=== PATIENT | female | born 1930 | race Caucasian/White ===

== ENCOUNTER → 2017-01-17 | Outpatient (CLI) | payer MEDICARE ==
[~2017-01-17] MED LIST: ALPRAZOLAM0.25 MG PO; AMITIZA24 MCG PO; AMLODIPINE BESYL5 MG PO; ANTIHISTAMINE; ANUSOL HC,ANUCO25 MG R; ASPI-COR81 M1 PO; ASPIRIN81 M1 PO; ATIVAN0.5 MG PO; BOOST GLUCOSE237 M1 PO; CALCITONIN IJ; CALTRATE 600+D1 TAB PO; CARVEDILOL3.125 MG PO; CENTRUM1 TA1 PO; CLINDAMYCIN150 MG PO; COLACE100 MG PO; COREG3.125 MG PO; COZAAR50 MG PO; CYMBALTA60 MG PO; Carafate1 GM PO; DEXILANT60 M1 PO; DOXYCYCLINE100 M3 PO; DUONEB 3 MG/3 ML3 M1 INH; DUONEB 3 MG/3 ML3 M1 NEB; ENALAPRIL MALE2.5 MG PO; ENALAPRIL2.5 MG PO; ENALAPRIL5 MG PO; FLONASE ALLERG9.9 ML NS; FLONASE0.05 MG/AC; FLONASE0.05 MG/AC NS; FLUTICASON0.05 MG/A1 NS; GLYBURIDE/METFO1 TA2 PO; HYDROCODONE BIT1 T11 PO; K-DUR 1010 MEQ PO; KETOTIFEN OPH; LASIX20 MG PO; LASIX40 MG PO; LINZESS145 MCG PO; LIPITOR40 MG PO; LOPRESSOR50 MG PO; LOSARTAN POTASS50 M1 PO; METAMUCIL0.52 GM; METFORMIN500 MG PO; MIACALCIN SPRAY1 EA NAS; MIRALAX POWDER17 G1 PO; MOTRIN800 MG PO; MULTIVITAMIN FO1 CAP PO; MYCOLOG CREAM 115 GM PO; Metformin Hydr500 MG PO; NIFEREX150 MG PO; NORFLEX100 MG PO; NOVOLOG1 UNIT/0.0 SC; NYSTATIN100000 U/1 T; OMEPRAZOLE40 MG PO; PATANOL 0.1% 5 M5 ML; PATANOL 0.1% 5 M5 ML OPH; PEPCID20 MG PO; POTASSIUM20 MEQ PO; PRAVACHOL20 MG PO; PRAVACHOL80 MG PO; PREDNICOT20 MG PO; PROTONIX20 MG IV; PROTONIX40 MG PO; RANITIDINE300 MG PO; REGLAN5 MG PO; SALINE NASAL 4444 ML NS; SERTRALINE100 MG PO; SUCRALFATE1 GM PO; SYSTANE 0.3-0.415 ML OP; TYLENOL325 M2 PO; VANCOMYCIN HCL1 GM IV; VICODIN 500 MG-1 TAB PO; VITAMIN B121000 MCG PO; VITAMIN D1000 IU PO; VITAMIN D31000 I1 PO; VITAMIN D31000 IU PO; XANAX0.25 MG PO; ZANTAC 150150 MG PO; ZANTAC150 MG PO; ZESTRIL5 MG PO; ZOFRAN ODT4 MG PO; ZOFRAN4 MG PO; ZOLOFT100 MG PO; Zofran4 MG PO; [UNRECOGNIZED DRUG - OTHER] IJ
== END | disposition home or self-care (01) ==
LOC: LAB 14:10
PROVIDERS: Internal Medicine
DX: R51 Headache (principal)

== ENCOUNTER → 2017-01-20 | Outpatient (CLI) | payer MEDICARE | END | disposition home or self-care (01) | LOC: CT 03:30 | DX: R51 Headache (principal); Z85.3 Personal history of malignant neoplasm of breast ==

== ENCOUNTER 2017-11-18 19:07 | Inpatient (IN) | payer MEDICARE ==
[~2017-11-18] VITALS: Ht 165.1 cm; Wt 68.9 kg
--- NOTE | ~2017-11-18 | DS ---
[place], [place] DISCHARGE SUMMARY NAME: MYRIAM ROBERTS [facility] #: [id number] UNIT #: [id number] ROOM: 421 DOCTOR: LU HWANG MD BIRTHDATE: [birth year] DOS: 11/22/2017 DISCHARGE DIAGNOSES: 1. The patient with cat bite 10 days ago, followed by local infection at the bite area on the outside of the right leg and cellulitis. 2. Abscess at the cat bite site on the outer side of the right leg, status post drainage. 3. The patient received one rabies vaccine injection, but cat is still alive 10 days after the bite, so further injections were stopped by Dr. Padmini Gregorio. 4. Type 2 diabetes mellitus. 5. Benign essential hypertension. 6. Diabetic nephropathy stage 3a. 7. History of recurrent gastrointestinal bleeds in the past. 8. History of restless leg syndrome. 9. History of colonic diverticulosis. 10. Bilateral knee replacements. 11. History of hiatal hernia and gastroesophageal reflux disease. 12. History of stomach ulcers. 13. History of bronchial asthma and hyperreactive airway disease. HOSPITAL COURSE: The patient says that she feeds a stray cat who actually bit her on , which was 10 days back and following this she developed redness and swelling in the surrounding area right outside of her right leg. The patient was admitted and the abscess was drained and she was started on antibiotics. The patient had no clearcut rabies vaccination. The patient was given first injection of rabies and cat was quarantined in the bathroom at her home. As checked by the patient, cat is still alive 10 days after the bite. This was passed on by nursing staff to Dr. Padmini Gregorio, the ID specialists who stopped any further injections and has recommended to continue clindamycin and Levaquin for 1 more week. The patient is being discharged to home to follow up with the PCP and Infectious Disease specialist in less than a week. Type 2 diabetes mellitus. Blood sugars were monitored and treated and reasonably controlled. Benign essential hypertension, with controlled blood pressures with treatment. Restless leg syndrome, treated with ropinirole, which was continued. Diabetic nephropathy stage 3a, stable. Chronic kidney disease. Previous history of recurrent GI bleeds and extensive colonic diverticulosis. The patient is slightly anemic, which is chronic for her. LABORATORY DATA: Blood cultures were negative. Wound cultures were negative. Normal serum electrolytes. Sodium slightly low at 129. No leukocytosis. Hemoglobin 10.4 with normal platelets. [place], [place] DISCHARGE SUMMARY NAME: MYRIAM ROBERTS #: [id number] UNIT #: [id number] ROOM: 421 DOCTOR: LU HWANG MD BIRTHDATE: [birth year] DISCHARGE MANAGEMENT: Metformin 250 mg daily, Levaquin 750 mg daily for a week, clindamycin 300 mg every 6 hours for 1 week, Coreg 3.125 mg b.i.d., lisinopril 5 mg b.i.d., Zoloft 100 mg a day, ropinirole 0.75 mg at bedtime, Cymbalta 80 mg a day, Protonix 40 mg a day, MiraLax 17 grams a day. FOLLOWUP: With the PCP and Infectious Disease specialist in less than a week. LU HWANG MD CM:INGRIS [id number] LU HWANG MD 11/22/17 182 interface
--- NOTE | ~2017-11-18 | PR ---
[place], [place] PROGRESS NOTE NAME: MYRIAM ROBERTS UNIT #: [id number] ROOM: 421 DOCTOR: LU HWANG MD BIRTHDATE: [birth year] DOS: 11/21/2017 SUBJECTIVE: The patient continues to improve, swelling and redness in her right leg is improving. OBJECTIVE: VITAL SIGNS: Blood pressure 144/67, heart rate 65 beats per minute, breathing 20 times per minute, temperature 98 degrees Fahrenheit. GENERAL APPEARANCE: The patient is alert and oriented x 3, in no visible distress. HEENT AND NECK: Exam within normal limits. CARDIOVASCULAR SYSTEM: Heart rate is regular in rate and rhythm. S1 and S2 normally audible. LUNGS: Clear to auscultation. ABDOMEN: Soft, nontender. No obvious organomegaly. Bowel sounds are present. EXTREMITIES: Swelling and redness in her right outer side of the right leg is improving and the wound which was drained, the abscess site is still draining. LU HWANG MD CM:PNTRANS [id number] LU HWANG MD 11/22/17 183 interface
--- NOTE | ~2017-11-18 | WRIGHTHP ---
[place], [place] PATIENT HISTORY AND PHYSICAL EXAM NAME: MYRIAM ROBERTS [facility] #: [id number] UNIT #: [id number] ROOM: 421 DOCTOR: LU HWANG MD BIRTHDATE: [birth year] DOS: 11/18/2017 HISTORY OF PRESENT ILLNESS: The patient is an 87-year-old female with a past medical history of bleeding, diverticulosis, recurrent severe GI bleed, chronic kidney disease stage 3, benign essential hypertension, type 2 diabetes mellitus with diabetic nephropathy, bilateral knee replacements, hiatal hernia and GERD, extensive diverticulosis of the colon, history of stomach ulcers, history of bronchial asthma and hyperreactive airway disease. The patient presented to the emergency department with a cat bite on , that is 6 days back, which started getting swelling and redness and pain, which was progressive. The patient finally presented to the emergency department. The patient says that she has not immunized the cat who is a stray cat that she started feeding, so she does not know about cat's immunization. The patient was recommended for admission and further management for IV antibiotics. The patient says the redness and swelling in the right leg has started improving. No chest pain, no shortness of breath, no GI or urinary symptoms. REVIEW OF SYSTEMS: LUNGS: No increasing shortness of breath. GASTROINTESTINAL: No nausea, vomiting, diarrhea, constipation. CARDIOVASCULAR: No chest pains or palpitations. FAMILY HISTORY: Noncontributory. SOCIAL HISTORY: The patient lives at home. Denies smoking cigarettes, alcohol and drug abuse. HOME MEDICATIONS: Ropinirole p.r.n., MiraLax, Vasotec, Cymbalta, lisinopril, Coreg, Vicodin. ALLERGIES: Known allergies to PENICILLIN and PROCAINE. PHYSICAL EXAMINATION: GENERAL: Alert, oriented times 3, in no visible distress. HEENT AND NECK: Extraocular movements are intact. Sclerae are anicteric. Oral mucosa is moist and clean. No obvious facial weakness. Neck is supple without any lymphadenopathy. No thyromegaly. No JVD. No carotid arterial bruits. LUNGS: Clear to auscultation. No wheezing. No rhonchi. CARDIOVASCULAR SYSTEM: Heart rate is regular in rate and rhythm. S1 and S2 normally audible. No significant murmur or any other abnormal cardiac sounds. ABDOMEN: Soft, nontender. No obvious organomegaly. Bowel sounds are present. No obvious herniation. EXTREMITIES: Swelling and redness on the outer side of the right leg, measuring about 8 inches and the patient has broken skin in the middle of the area of cellulitis, no drainage. CENTRAL NERVOUS SYSTEM: Alert and oriented x 3. Cranial nerves II-XII are intact. Speech is normal. The patient is able to move all extremities. Normal muscle strength. Deep tendon reflexes are equal on both sides. Plantars were downgoing. [place], [place] PATIENT HISTORY AND PHYSICAL EXAM NAME: MYRIAM ROBERTS UNIT #: [id number] ROOM: 421 DOCTOR: JAIDEN CALDERON,LU [place] BIRTHDATE: [birth year] LABORATORY DATA: No leukocytosis. Hemoglobin of 11. BUN and creatinine 30 and 1.4. IMPRESSION AND PLAN: 1. The patient with a cat bite versus scratch on the right leg with spreading cellulitis. The patient is not certain about cat immunization. The cat needs to be quarantine. The patient was informed, now consulted infectious disease specialist to decide about rabies vaccination as well as selection of antibiotics. For now, the patient I started the patient on Levaquin for the cellulitis. 2. Type 2 diabetes mellitus. Blood sugars are reasonably controlled. 3. Benign essential hypertension. I will continue the patient's home medications and monitor blood pressures. They are reasonably controlled. 3. History of restless leg syndrome for which she takes ropinirole p.r.n., but she is having the symptoms now, so ropinirole is being started. 4. Diabetic nephropathy, stage IIIA. Kidney functions to be monitored. 5. History of recurrent GI bleeds, presently asymptomatic. The patient is slightly anemic and chronically anemic. LU HWANG MD CM:HISPHYS:PATIENT HISTORY AND PHYSICAL EXAMINATION [id number] LU HWANG MD 11/19/17 0501 interface
--- NOTE | ~2017-11-18 | PR ---
[place], [place] PROGRESS NOTE [id number] UNIT #: [id number] ROOM: 421 DOCTOR: LU HWANG MD BIRTHDATE: [birth year] DOS: 11/20/2017 SUBJECTIVE: The patient is starting to feel better after she had incision and drainage of the abscess in her right calf. The patient also received 1 injection of rabies vaccine. OBJECTIVE: VITAL SIGNS: Blood pressure 121/44, heart rate 73 beats per minute, breathing 20 times per minute, temperature 98 degrees Fahrenheit. GENERAL APPEARANCE: The patient is alert and oriented x 3, in no visible distress. HEENT AND NECK: Exam within normal limits. CARDIOVASCULAR SYSTEM: Heart rate is regular in rate and rhythm. S1 and S2 normally audible. LUNGS: Clear to auscultation. ABDOMEN: Soft, nontender. No obvious organomegaly. Bowel sounds are present. EXTREMITIES: Without significant cyanosis or edema. IMPRESSION: 1. The patient with cat bite versus cat scratch and spreading cellulitis in the right calf is improving after drainage of the abscess. 2. The patient is being treated with antibiotics. 3. The patient is being evaluated and treated for rabies. She received first injection of the rabies vaccine and the cat is being isolated at home and be watched for 10 days from the cat bite. If the cat stays alive, then the patient will not need any more rabies vaccine injections. 4. Type 2 diabetes mellitus. Blood sugars are reasonably controlled. 5. Benign essential hypertension. Blood pressure is being monitored and treated. 6. Cellulitis, improving with treatment with antibiotics. The patient remains on clindamycin and Levaquin. LU HWANG MD CM:PNTRANS [id number] [phone] LU HWANG MD 11/20/172035 interface
[~2017-11-18 19:07] MED LIST changes: -KETOTIFEN OPH; -PROTONIX20 MG IV; +PROTONIX20 MG PO; +ZADITOR 5 ML5 M1 OPH
[2017-11-18 19:12] VITALS: BP 110/78
[2017-11-18 19:53] LABS: BASO # 0.1 10*3/uL (0.0-0.1); BASO % 0.8 % (0.0-1.0); EOS # 0.2 10*3/uL (0.0-0.4); EOS % 2.2 % (1.0-4.0); HEMATOCRIT 32.4 % (37.0-47.0); LYMPH # 1.4 10*3/uL (1.3-4.4); LYMPH % 15.3 % (27.0-41.0); MEAN CELL VOLUME 97.3 fl (81.0-99.0); MEAN PLATELET VOLUME 10.5 fl (9.6-12.3); MONO # 0.9 10*3/uL (0.1-1.0); NEUT # 6.5 10*3/uL (2.3-7.9); NEUT % 71.5 % (47.0-73.0); PLATELET COUNT AUTOMATED 205 10*3/uL (130-400); RED BLOOD COUNT 3.33 10*6/uL (4.10-5.10); RED CELL DISTRI WIDTH 12.3 % (0-14.5); WHITE BLOOD COUNT 9.1 10*3/uL (4.8-10.8)
[2017-11-18 20:02] LABS: ACT PARTIAL THROMBO TIME 25.1 SECONDS (20.8-31.5)
[2017-11-18 20:07] LABS: ALBUMIN 3.3 gm/dl (3.1-4.5); CREATININE 1.57 mg/dL (0.55-1.02); POTASSIUM 4.3 mmol/L (3.5-5.1); TOTAL PROTEIN 7.2 gm/dL (6.4-8.2)
[2017-11-18 21:04] VITALS: BP 110/68
[2017-11-18 23:04] VITALS: BP 147/93
[2017-11-19] VITALS: BP 154/92
[2017-11-19] MEDS ORDERED: ALLERGY RELIEF25 MG PO (00:16)
[2017-11-19 06:17] LABS: CREATININE 1.44 mg/dL (0.55-1.02); POTASSIUM 3.9 mmol/L (3.5-5.1)
[2017-11-19 06:23] LABS: BASO # 0.1 10*3/uL (0.0-0.1); BASO % 0.7 % (0.0-1.0); EOS # 0.2 10*3/uL (0.0-0.4); EOS % 2.7 % (1.0-4.0); HEMATOCRIT 31.7 % (37.0-47.0); HEMOGLOBIN 10.6 g/dl (12.0-16.0); LYMPH # 1.2 10*3/uL (1.3-4.4); LYMPH % 15.9 % (27.0-41.0); MEAN CELL VOLUME 96.6 fl (81.0-99.0); MEAN CORPUSCULAR HGB 32.3 pg (27.0-31.0); MEAN CORPUSCULAR HGB CONC 33.4 g/dl (33.0-37.0); MEAN PLATELET VOLUME 10.6 fl (9.6-12.3); MONO # 0.7 10*3/uL (0.1-1.0); MONO % 9.7 % (3.0-9.0); NEUT # 5.4 10*3/uL (2.3-7.9); NEUT % 70.9 % (47.0-73.0); PLATELET COUNT AUTOMATED 196 10*3/uL (130-400); RED BLOOD COUNT 3.28 10*6/uL (4.10-5.10); RED CELL DISTRI WIDTH 12.2 % (0-14.5); WHITE BLOOD COUNT 7.7 10*3/uL (4.8-10.8)
[2017-11-19 08:00] VITALS: BP 141/72
[2017-11-19] MEDS ORDERED: SYSTANE 0.3-0.415 ML OU (09:52)
[2017-11-19] MEDS ORDERED: REQUIP1 M1 PO (09:56)
[2017-11-19] MEDS ORDERED: MIRALAX17 GM PO (09:57)
[2017-11-19 12:00] VITALS: BP 151/63
[2017-11-19 17:14] VITALS: BP 155/63
[2017-11-20 01:18] VITALS: BP 143/67
[2017-11-20 07:04] LABS: BASO # 0.1 10*3/uL (0.0-0.1); BASO % 0.6 % (0.0-1.0); EOS # 0.2 10*3/uL (0.0-0.4); EOS % 2.6 % (1.0-4.0); HEMATOCRIT 34.5 % (37.0-47.0); HEMOGLOBIN 11.4 g/dl (12.0-16.0); LYMPH % 10.9 % (27.0-41.0); MEAN CELL VOLUME 95.8 fl (81.0-99.0); MEAN CORPUSCULAR HGB 31.7 pg (27.0-31.0); MEAN PLATELET VOLUME 10.3 fl (9.6-12.3); MONO # 0.8 10*3/uL (0.1-1.0); MONO % 8.8 % (3.0-9.0); NEUT # 6.8 10*3/uL (2.3-7.9); NEUT % 76.9 % (47.0-73.0); PLATELET COUNT AUTOMATED 222 10*3/uL (130-400); RED CELL DISTRI WIDTH 12.2 % (0-14.5); WHITE BLOOD COUNT 8.9 10*3/uL (4.8-10.8)
[2017-11-20 07:13] LABS: CREATININE 1.28 mg/dL (0.55-1.02); POTASSIUM 4.2 mmol/L (3.5-5.1)
[2017-11-20 08:00] VITALS: BP 137/56
[2017-11-20 16:00] VITALS: BP 121/44
[2017-11-21] VITALS: BP 154/68
[2017-11-21 06:58] LABS: BASO % 0.5 % (0.0-1.0); EOS # 0.2 10*3/uL (0.0-0.4); EOS % 2.3 % (1.0-4.0); HEMATOCRIT 29.4 % (37.0-47.0); HEMOGLOBIN 10.4 g/dl (12.0-16.0); LYMPH # 0.8 10*3/uL (1.3-4.4); MEAN CORPUSCULAR HGB 32.9 pg (27.0-31.0); MEAN CORPUSCULAR HGB CONC 35.4 g/dl (33.0-37.0); MEAN PLATELET VOLUME 9.9 fl (9.6-12.3); MONO # 0.6 10*3/uL (0.1-1.0); MONO % 7.6 % (3.0-9.0); NEUT # 5.8 10*3/uL (2.3-7.9); NEUT % 78.3 % (47.0-73.0); PLATELET COUNT AUTOMATED 181 10*3/uL (130-400); RED BLOOD COUNT 3.16 10*6/uL (4.10-5.10); WHITE BLOOD COUNT 7.4 10*3/uL (4.8-10.8)
[2017-11-21 07:06] LABS: HIV 1+2 AB + HIV1 P24 AG Non Reactive (Non Reactive)
[2017-11-21 07:28] LABS: POTASSIUM 4.1 mmol/L (3.5-5.1)
[2017-11-21 07:29] LABS: CREATININE 1.14 mg/dL (0.55-1.02)
[2017-11-21 08:00] VITALS: BP 153/60
[2017-11-21 16:00] VITALS: BP 128/51
[2017-11-21 16:08] LABS: ACID FAST SPEC PROCESSING Tissue Grinding (.)
[2017-11-21 20:00] VITALS: BP 144/50
[2017-11-22 08:00] VITALS: BP 144/67
[2017-11-22] MEDS ORDERED: LEVAQUIN750 M1 PO ×2 (15:40→18:05)
[2017-11-22] MEDS ORDERED: CLEOCIN HCL300 MG PO (15:40)
[2017-11-22 16:00] VITALS: BP 138/78
[2017-11-22] MEDS ORDERED: CLINDAMYCIN HC300 MG PO (18:05)
== END 2017-11-22 19:00 | disposition home or self-care (01) | DRG 603 ==
LOC: ED 19:07 → EDHOLD 20:32 → 4E 20:32
PROVIDERS: Hospitalist; Internal Medicine; Physician Assistant
PROC: 0H9KXZZ Drainage of Right Lower Leg Skin, External Approach (ICD-10-PCS; principal; 2017-11-20)
DX: L03.115 Cellulitis of right lower limb (principal); E11.22 Type 2 diabetes mellitus with diabetic chronic kidney disease; E11.40 Type 2 diabetes mellitus with diabetic neuropathy, unspecified; L02.415 Cutaneous abscess of right lower limb; K21.9 Gastro-esophageal reflux disease without esophagitis; W55.01XA Bitten by cat, initial encounter; G25.81 Restless legs syndrome; K57.30 Diverticulosis of large intestine without perforation or abscess without bleeding; Z96.653 Presence of artificial knee joint, bilateral; I12.9 Hypertensive chronic kidney disease with stage 1 through stage 4 chronic kidney disease, or unspecified chronic kidney disease; N18.3 Chronic kidney disease, stage 3 (moderate); D64.9 Anemia, unspecified; J45.909 Unspecified asthma, uncomplicated; Z87.19 Personal history of other diseases of the digestive system; Z88.0 Allergy status to penicillin; Z88.8 Allergy status to other drugs, medicaments and biological substances; S81.851A Open bite, right lower leg, initial encounter; Z79.899 Other long term (current) drug therapy; Z79.84 Long term (current) use of oral hypoglycemic drugs; Z90.49 Acquired absence of other specified parts of digestive tract; Z98.42 Cataract extraction status, left eye; Z98.41 Cataract extraction status, right eye; Z90.710 Acquired absence of both cervix and uterus; Z82.49 Family history of ischemic heart disease and other diseases of the circulatory system; Z83.3 Family history of diabetes mellitus; Y93.89 Activity, other specified; Y92.89 Other specified places as the place of occurrence of the external cause; Y99.8 Other external cause status

== ENCOUNTER 2017-12-03 16:50 | Inpatient (IN) | payer MEDICARE ==
[~2017-12-03] VITALS: Ht 165.1 cm; Wt 66.7 kg
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
--- NOTE | ~2017-12-03 | WRIGHTHP ---
[place], [place] PATIENT HISTORY AND PHYSICAL EXAM NAME: MYRIAM ROBERTS [facility] #: [id number] UNIT #: [id number] ROOM: 508 DOCTOR: LU HWANG MD BIRTHDATE: [birth year] DOS: 12/03/2017 HISTORY OF PRESENT ILLNESS: The patient is an 87-year-old female with a past medical history of: 1. Type 2 diabetes mellitus. 2. Benign essential hypertension. 3. Diabetic nephropathy stage 3a. 4. Chronic kidney disease. 5. History of gastrointestinal bleeds in the past. 6. Restless legs syndrome. 7. Colonic diverticulosis. 8. Bilateral knee replacements. 9. Hiatal hernia and gastroesophageal reflux disease. 10. History of stomach ulcers in the past. 11. Bronchial asthma and hyperreactive airway disease. The patient was sent over by Dr. Daisy Abdi, her PCP to the ER for hyponatremia seen on the blood testing. Her sodium was low at 124 and potassium was high at 5.2. The patient had been having recurrent nausea and vomiting in the mornings. The patient was also feeling somewhat weak. After initial evaluation in the Emergency Department, the patient was recommended for admission and further management for acute hyponatremia. Nephrology was consulted. No chest pain. No increasing shortness of breath. No other GI or urinary symptoms. REVIEW OF SYSTEMS: LUNGS: No increasing shortness of breath. GASTROINTESTINAL: The patient has recurrent nausea and vomiting. CARDIOVASCULAR: No chest pains or palpitations. FAMILY HISTORY: Noncontributory. ALLERGIES: Known allergies to PENICILLIN, CLINDAMYCIN, PROCAINE and LEVAQUIN. PHYSICAL EXAMINATION: GENERAL: Alert, oriented x 3, in no visible distress, generalized weakness. VITAL SIGNS: Blood pressure 149/51, heart rate 60 beats per minute, breathing 20 times per minute, temperature 98 degrees Fahrenheit. HEENT AND NECK: Extraocular movements are intact. Sclerae are anicteric. Oral mucosa is moist and clean. No obvious facial weakness. Neck is supple without any lymphadenopathy. No thyromegaly. No JVD. No carotid arterial bruits. LUNGS: Clear to auscultation. No wheezing. No rhonchi. CARDIOVASCULAR SYSTEM: Heart rate is regular in rate and rhythm. S1 and S2 normally audible. No significant murmur or any other abnormal cardiac sounds. ABDOMEN: Soft, nontender. No obvious organomegaly. Bowel sounds are present. No obvious herniation. EXTREMITIES: Without significant cyanosis or edema. Warm to touch. CENTRAL NERVOUS SYSTEM: Alert and oriented x 3. Cranial nerves II-XII are intact. Speech is normal. The patient is able to move all extremities. Normal [place], [place] PATIENT HISTORY AND PHYSICAL EXAM NAME: MYRIAM ROBERTS UNIT #: [id number] ROOM: 508 DOCTOR: LU HWANG MD BIRTHDATE: [birth year] muscle strength. Deep tendon reflexes are equal on both sides. Plantars were downgoing. IMPRESSION AND PLAN: 1. The patient with acute hyponatremia, apparently related to drinking too much water and also having recurrent nausea and vomiting. The patient has been asked to cut back on her oral free water intake to 1 liter per day by Nephrology and we will continue to follow her serum electrolytes, BUN and creatinine on daily basis. 2. Type 2 diabetes mellitus and diabetic gastroparesis. Blood sugars are reasonably controlled. The patient to be kept on Zofran for nausea and vomiting. 3. Chronic constipation, treated with MiraLax. 4. Major depression, recurrent, mild, treated and controlled with Zoloft. 5. Generalized anxiety disorder, treated and controlled with Xanax as needed. 6. Hyperkalemia, apparently related to kidney failure. The patient was hydrated with normal saline and potassium levels are being monitored on daily basis. The patient was given extra supplements. LU HWANG MD CM:HISPHYS:PATIENT HISTORY AND PHYSICAL EXAMINATION [id number] LU HWANG MD 12/04/172121 interface
--- NOTE | ~2017-12-03 | PR ---
[place], [place] PROGRESS NOTE NAME: MYRIAM ROBERTS UNIT #: [id number] ROOM: 508 DOCTOR: JAIDEN CALDERONLU Montgomery BIRTHDATE: [birth year] DOS: 12/05/2017 SUBJECTIVE: The patient is requesting venous Dopplers of her lower extremities as requested by her primary care physician, Dr. Daisy Abdi recently if it can be performed. OBJECTIVE: VITAL SIGNS: Blood pressure 149/51, heart rate of 60 beats per minute, breathing 20 times per minute, temperature 98 degrees Fahrenheit. GENERAL APPEARANCE: The patient is alert and oriented x 3, in no visible distress. HEENT AND NECK: Exam within normal limits. CARDIOVASCULAR SYSTEM: Heart rate is regular in rate and rhythm. S1 and S2 normally audible. LUNGS: Clear to auscultation. ABDOMEN: Soft, nontender. No obvious organomegaly. Bowel sounds are present. EXTREMITIES: Without significant cyanosis or edema. Slight swelling in her legs bilaterally. IMPRESSION: 1. The patient with recent cat bite and cellulitis, all resolving gradually. The patient has slight lower extremity edema and her primary care physician, Dr. Daisy Abdi has requested a venous Doppler studies to look for DVT, which I can get performed today and hopefully discharge the patient to home tomorrow. 2. Acute hyponatremia starting to improve with free fluid restriction, BUN and creatinine improved to 26 and 1.6, sodium improved to 129 and potassium improved to 5.3. 3. Hyperkalemia from acute kidney failure, improved to 5.3 with gentle hydration with oral fluids. 4. BUN and creatinine improved to 26 and 1.6, improving kidney failure. It had gone as high as 27 and 2.1. 5. Generalized weakness and adult failure to thrive. The patient is working with physical therapy. 6. Generalized anxiety disorder treated and controlled with Xanax as needed. 7. Major depression, recurrent, mild, treated with Zoloft. 8. Chronic constipation. The patient is moving bowels. She is taking MiraLax. 9. Type 2 diabetes mellitus and also diabetic gastroparesis. Blood sugars are being monitored and are reasonably controlled. [place], [place] PROGRESS NOTE NAME: MYRIAM ROBERTS UNIT #: [id number] ROOM: 508 DOCTOR: LU HWANG MD BIRTHDATE: [birth year] LU HWANG MD CM:PNTRANS [id number] [id number] LU HWANG MD 12/05/17 1310 interface
[~2017-12-03 16:50] MED LIST changes: +ALLERGY RELIEF25 MG PO; +CLEOCIN HCL300 MG PO; +CLINDAMYCIN HC300 MG PO; +LEVAQUIN750 M1 PO; +MIRALAX17 GM PO; +REQUIP1 M1 PO; +SYSTANE 0.3-0.415 ML OU
[2017-12-03 16:56] VITALS: BP 148/125
[2017-12-03 17:30] VITALS: BP 133/60
[2017-12-03 18:32] LABS: BASO # 0.1 10*3/uL (0.0-0.1); BASO % 1.2 % (0.0-1.0); EOS # 0.1 10*3/uL (0.0-0.4); EOS % 1.5 % (1.0-4.0); HEMATOCRIT 32.1 % (37.0-47.0); LYMPH # 1.3 10*3/uL (1.3-4.4); LYMPH % 19.5 % (27.0-41.0); MEAN CELL VOLUME 93.3 fl (81.0-99.0); MEAN CORPUSCULAR HGB CONC 34.3 g/dl (33.0-37.0); MEAN PLATELET VOLUME 8.8 fl (9.6-12.3); MONO # 0.5 10*3/uL (0.1-1.0); NEUT # 4.7 10*3/uL (2.3-7.9); NEUT % 70.5 % (47.0-73.0); PLATELET COUNT AUTOMATED 281 10*3/uL (130-400); RED BLOOD COUNT 3.44 10*6/uL (4.10-5.10); RED CELL DISTRI WIDTH 12.3 % (0-14.5); WHITE BLOOD COUNT 6.6 10*3/uL (4.8-10.8)
[2017-12-03 18:48] LABS: ALBUMIN 3.6 gm/dl (3.1-4.5); CREATININE 2.09 mg/dL (0.55-1.02); POTASSIUM 5.6 mmol/L (3.5-5.1); TOTAL PROTEIN 7.2 gm/dL (6.4-8.2)
[2017-12-03 19:17] VITALS: BP 145/59
[2017-12-03 20:15] VITALS: BP 113/86
[2017-12-03 20:20] VITALS: BP 113/86
[2017-12-04] VITALS: BP 135/59
[2017-12-04 08:00] VITALS: BP 160/54
[2017-12-04 09:01] LABS: CREATININE 1.83 mg/dL (0.55-1.02)
[2017-12-04 12:00] VITALS: BP 149/51
[2017-12-04 16:00] VITALS: BP 155/49
[2017-12-04 17:15] LABS: CREATININE 1.84 mg/dL (0.55-1.02); POTASSIUM 5.4 mmol/L (3.5-5.1)
[2017-12-04 19:44] LABS: BILIRUBIN NEGATIVE (NEGATIVE); BLOOD NEGATIVE (NEGATIVE); CLARITY CLEAR (CLEAR); COLOR YELLOW (YELLOW); GLUCOSE NEGATIVE (NEGATIVE); KETONE NEGATIVE (NEGATIVE); LEUKO ESTERASE NEGATIVE (NEGATIVE); NITRITE NEGATIVE (NEGATIVE); PH 7.5 (5.0-9.0); UROBILINOGEN 0.2 E.U./dl (0.2-1.0)
[2017-12-04 20:00] VITALS: BP 155/54
[2017-12-04 20:06] LABS: EPITHELIAL CELLS 0-2; WBC 0-2 wbc/hpf (0-5)
[2017-12-05] VITALS: BP 129/56
[2017-12-05 06:48] LABS: ALBUMIN 3.7 gm/dl (3.1-4.5); CREATININE 1.65 mg/dL (0.55-1.02); POTASSIUM 5.3 mmol/L (3.5-5.1)
[2017-12-05 06:55] LABS: THYROID STIM HORMONE (HS) 0.505 uIU/ml (0.358-4.75)
[2017-12-05 08:00] VITALS: BP 155/60
[2017-12-05 13:00] VITALS: BP 140/58
[2017-12-05 16:00] VITALS: BP 149/67
[2017-12-05 20:00] VITALS: BP 152/87
[2017-12-06] VITALS: BP 157/76
[2017-12-06 07:06] LABS: ALBUMIN 3.3 gm/dl (3.1-4.5); CREATININE 1.37 mg/dL (0.55-1.02); PHOSPHOROUS 3.7 mg/dL (2.5-4.9); POTASSIUM 4.5 mmol/L (3.5-5.1)
[2017-12-06 08:00] VITALS: BP 146/50
[2017-12-06 12:00] VITALS: BP 150/60
[2017-12-06 16:00] VITALS: BP 149/61
== END 2017-12-06 21:18 | disposition home or self-care (01) | DRG 640 ==
LOC: ED 16:50 → EDHOLD 19:36 → 5E 19:36
PROVIDERS: Internal Medicine; Internal Medicine Nephrology; Physician Assistant; Psychiatry & Neurology Neurology with Special Qualifications in Child Neurology
DX: E87.1 Hypo-osmolality and hyponatremia (principal); N17.0 Acute kidney failure with tubular necrosis; K31.84 Gastroparesis; F33.0 Major depressive disorder, recurrent, mild; E11.22 Type 2 diabetes mellitus with diabetic chronic kidney disease; E87.5 Hyperkalemia; E11.40 Type 2 diabetes mellitus with diabetic neuropathy, unspecified; E11.43 Type 2 diabetes mellitus with diabetic autonomic (poly)neuropathy; I12.9 Hypertensive chronic kidney disease with stage 1 through stage 4 chronic kidney disease, or unspecified chronic kidney disease; N18.9 Chronic kidney disease, unspecified; G25.81 Restless legs syndrome; K57.90 Diverticulosis of intestine, part unspecified, without perforation or abscess without bleeding; Z96.653 Presence of artificial knee joint, bilateral; K21.9 Gastro-esophageal reflux disease without esophagitis; J45.909 Unspecified asthma, uncomplicated; K59.09 Other constipation; F41.1 Generalized anxiety disorder; R62.7 Adult failure to thrive; E87.8 Other disorders of electrolyte and fluid balance, not elsewhere classified; D64.9 Anemia, unspecified; D72.810 Lymphocytopenia; Z88.0 Allergy status to penicillin; Z88.1 Allergy status to other antibiotic agents; Z88.8 Allergy status to other drugs, medicaments and biological substances; Z90.49 Acquired absence of other specified parts of digestive tract; Z90.710 Acquired absence of both cervix and uterus; Z83.3 Family history of diabetes mellitus; Z82.49 Family history of ischemic heart disease and other diseases of the circulatory system

== ENCOUNTER 2018-08-11 13:09 | Emergency (ER) | payer MEDICARE ==
[~2018-08-11] VITALS: Ht 165.1 cm; Wt 63.0 kg
[2018-08-11] MEDS ORDERED: FLAGYL500 MG PO (14:31)
[2018-08-11] MEDS ORDERED: DOXYCYCLINE100 M3 PO (14:31)
== END 2018-08-11 15:13 | disposition home or self-care (01) ==
LOC: ED 13:09
DX: S60.417A Abrasion of left little finger, initial encounter (principal); L03.012 Cellulitis of left finger; Z88.0 Allergy status to penicillin; Z88.1 Allergy status to other antibiotic agents; Z88.4 Allergy status to anesthetic agent; Z79.899 Other long term (current) drug therapy; Z90.710 Acquired absence of both cervix and uterus; W55.01XA Bitten by cat, initial encounter; Y93.89 Activity, other specified; Y92.098 Other place in other non-institutional residence as the place of occurrence of the external cause; Y99.8 Other external cause status

== ENCOUNTER → 2018-12-10 | Outpatient (CLI) | payer MEDICARE ==
[~2018-12-10] MED LIST changes: +FLAGYL500 MG PO
[2018-12-10 13:32] LABS: BASO # 0.1 10*3/uL (0.0-0.1); BASO % 1.7 % (0.0-1.0); EOS # 0.1 10*3/uL (0.0-0.4); EOS % 3.1 % (1.0-4.0); HEMATOCRIT 38.3 % (37.0-47.0); HEMOGLOBIN 12.4 g/dl (12.0-16.0); LYMPH # 1.1 10*3/uL (1.3-4.4); LYMPH % 27.3 % (27.0-41.0); MEAN CELL VOLUME 97.2 fl (81.0-99.0); MEAN CORPUSCULAR HGB 31.5 pg (27.0-31.0); MEAN CORPUSCULAR HGB CONC 32.4 g/dl (33.0-37.0); MEAN PLATELET VOLUME 11.1 fl (9.6-12.3); MONO # 0.3 10*3/uL (0.1-1.0); MONO % 8.1 % (3.0-9.0); NEUT # 2.5 10*3/uL (2.3-7.9); NEUT % 59.6 % (47.0-73.0); PLATELET COUNT AUTOMATED 209 10*3/uL (130-400); RED BLOOD COUNT 3.94 10*6/uL (4.10-5.10); WHITE BLOOD COUNT 4.2 10*3/uL (4.8-10.8)
[2018-12-10 13:55] LABS: ALBUMIN 3.7 gm/dl (3.1-4.5); CREATININE 1.54 mg/dL (0.55-1.02); FREE T4 0.96 ng/dl (0.76-1.46); POTASSIUM 4.1 mmol/L (3.5-5.1)
[2018-12-10 14:01] LABS: THYROID STIM HORMONE (HS) 1.23 uIU/ml (0.358-4.75)
[2018-12-10 14:29] LABS: VITAMIN D, 25-HYDROXY 36.2 ng/mL (30-100)
== END | disposition home or self-care (01) ==
LOC: LAB 12:43
PROVIDERS: Internal Medicine
DX: E78.2 Mixed hyperlipidemia (principal); E55.9 Vitamin D deficiency, unspecified; E05.90 Thyrotoxicosis, unspecified without thyrotoxic crisis or storm; D52.9 Folate deficiency anemia, unspecified; E11.9 Type 2 diabetes mellitus without complications; R53.81 Other malaise; R79.89 Other specified abnormal findings of blood chemistry

== ENCOUNTER → 2019-07-05 | Outpatient (CLI) | payer MEDICARE | END | disposition home or self-care (01) | LOC: RAD 15:54 | DX: M25.512 Pain in left shoulder (principal); W19.XXXA Unspecified fall, initial encounter ==

== ENCOUNTER → 2020-03-09 | Outpatient (CLI) | payer MEDICARE ==
[2020-03-09 13:46] LABS: BASO # 0.1 10*3/uL (0.0-0.1); BASO % 1.5 % (0.0-1.0); EOS # 0.1 10*3/uL (0.0-0.4); EOS % 3.5 % (1.0-4.0); HEMATOCRIT 37.2 % (37.0-47.0); LYMPH # 1.1 10*3/uL (1.3-4.4); LYMPH % 28.1 % (27.0-41.0); MEAN CELL VOLUME 99.2 fl (81.0-99.0); MEAN CORPUSCULAR HGB 33.3 pg (27.0-31.0); MEAN CORPUSCULAR HGB CONC 33.6 g/dl (33.0-37.0); MEAN PLATELET VOLUME 10.5 fl (9.6-12.3); MONO # 0.3 10*3/uL (0.1-1.0); MONO % 7.8 % (3.0-9.0); NEUT # 2.4 10*3/uL (2.3-7.9); NEUT % 58.8 % (47.0-73.0); PLATELET COUNT AUTOMATED 208 10*3/uL (130-400); RED BLOOD COUNT 3.75 10*6/uL (4.10-5.10); RED CELL DISTRI WIDTH 11.9 % (0-14.5)
[2020-03-09 14:02] LABS: ALBUMIN 3.6 gm/dl (3.1-4.5); CREATININE 1.57 mg/dL (0.55-1.02); POTASSIUM 4.2 mmol/L (3.5-5.1); TOTAL PROTEIN 7.4 gm/dL (6.4-8.2)
[2020-03-09 14:04] LABS: FREE T4 1.22 ng/dl (0.76-1.46)
[2020-03-09 14:08] LABS: THYROID STIM HORMONE (HS) 0.904 uIU/ml (0.358-4.75)
[2020-03-09 14:30] LABS: VITAMIN D, 25-HYDROXY 35.7 ng/mL (30-100)
== END | disposition home or self-care (01) ==
LOC: LAB 13:01
PROVIDERS: Internal Medicine
DX: I12.9 Hypertensive chronic kidney disease with stage 1 through stage 4 chronic kidney disease, or unspecified chronic kidney disease (principal); E11.22 Type 2 diabetes mellitus with diabetic chronic kidney disease; N18.9 Chronic kidney disease, unspecified; R53.81 Other malaise; E78.2 Mixed hyperlipidemia; E55.9 Vitamin D deficiency, unspecified; Z00.00 Encounter for general adult medical examination without abnormal findings

== ENCOUNTER 2020-06-21 15:06 | Emergency (ER) | payer MEDICARE ==
[~2020-06-21] VITALS: Ht 154.9 cm; Wt 62.6 kg
== END 2020-06-22 00:14 | disposition home or self-care (01) ==
LOC: ED 15:06
DX: K59.00 Constipation, unspecified (principal); N39.0 Urinary tract infection, site not specified; Z79.899 Other long term (current) drug therapy; Z88.0 Allergy status to penicillin; Z88.5 Allergy status to narcotic agent; Z79.84 Long term (current) use of oral hypoglycemic drugs

== ENCOUNTER → 2020-07-11 | Outpatient (CLI) | payer MEDICARE ==
[~2020-07-11] MED LIST changes: +CEFUROXIME AXE250 MG PO
== END | disposition home or self-care (01) ==
LOC: RAD 10:50
PROVIDERS: ATTEND Surgery
DX: K59.00 Constipation, unspecified (principal); Z90.49 Acquired absence of other specified parts of digestive tract

== ENCOUNTER 2020-09-05 10:12 | Emergency (ER) | payer MEDICARE ==
[~2020-09-05] VITALS: Wt 62.6 kg
[2020-09-05 11:00] LABS: BASO # 0.1 10*3/uL (0.0-0.1); BASO % 1.8 % (0.0-1.0); EOS # 0.2 10*3/uL (0.0-0.4); EOS % 5.1 % (1.0-4.0); HEMATOCRIT 42.1 % (37.0-47.0); LYMPH # 1.3 10*3/uL (1.3-4.4); LYMPH % 28.9 % (27.0-41.0); MEAN CELL VOLUME 99.8 fl (81.0-99.0); MEAN CORPUSCULAR HGB 32.5 pg (27.0-31.0); MEAN CORPUSCULAR HGB CONC 32.5 g/dl (33.0-37.0); MEAN PLATELET VOLUME 10.2 fl (9.6-12.3); MONO # 0.4 10*3/uL (0.1-1.0); MONO % 9.6 % (3.0-9.0); NEUT # 2.4 10*3/uL (2.3-7.9); NEUT % 54.4 % (47.0-73.0); PLATELET COUNT AUTOMATED 209 10*3/uL (130-400); RED BLOOD COUNT 4.22 10*6/uL (4.10-5.10); RED CELL DISTRI WIDTH 11.5 % (0-14.5); WHITE BLOOD COUNT 4.5 10*3/uL (4.8-10.8)
[2020-09-05 11:09] LABS: ACT PARTIAL THROMBO TIME 25.2 SECONDS (20.0-32.1)
[2020-09-05 11:19] LABS: ALBUMIN 3.9 gm/dl (3.1-4.5); ALKALINE PHOSPHATASE 64 U/L (45-117); BUN 29 mg/dl (7-24); CHLORIDE 104 mmol/L (98-107); LIPASE 240 U/L (73-393); POTASSIUM 4.3 mmol/L (3.5-5.1); SGOT/AST 18 IU/L (3-35); SGPT/ALT 24 U/L (12-78); SODIUM 136 mmol/L (136-145); TOTAL PROTEIN 7.8 gm/dL (6.4-8.2)
[2020-09-05 11:23] LABS: TROPONIN I < 0.015 ng/ml (<0.045)
== END 2020-09-05 13:23 | disposition home or self-care (01) ==
LOC: ED 10:12
PROVIDERS: Emergency Medicine
DX: L25.9 Unspecified contact dermatitis, unspecified cause (principal); R79.1 Abnormal coagulation profile; Z88.0 Allergy status to penicillin; Z88.1 Allergy status to other antibiotic agents; Z88.4 Allergy status to anesthetic agent; Z79.899 Other long term (current) drug therapy

== ENCOUNTER 2021-01-20 14:43 | Emergency (ER) | payer MEDICARE ==
[~2021-01-20] VITALS: Ht 165.1 cm; Wt 62.6 kg
[2021-01-20] MEDS ORDERED: HYDROCODONE-AC1 EAC1 PO (16:22)
== END 2021-01-20 16:29 | disposition home or self-care (01) ==
LOC: ED 14:43
DX: S42.201A Unspecified fracture of upper end of right humerus, initial encounter for closed fracture (principal); Z88.0 Allergy status to penicillin; Z88.1 Allergy status to other antibiotic agents; Z88.4 Allergy status to anesthetic agent; Z79.2 Long term (current) use of antibiotics; Z79.899 Other long term (current) drug therapy; Z98.890 Other specified postprocedural states; Z96.653 Presence of artificial knee joint, bilateral; Z90.710 Acquired absence of both cervix and uterus; W10.8XXA Fall (on) (from) other stairs and steps, initial encounter; Y93.01 Activity, walking, marching and hiking; Y92.89 Other specified places as the place of occurrence of the external cause; Y99.8 Other external cause status

== ENCOUNTER → 2022-03-15 | Outpatient (CLI) | payer OTHER ==
[~2022-03-15] MED LIST changes: +HYDROCODONE-AC1 EAC1 PO
[2022-03-15 10:43] LABS: BASO # 0.1 10*3/uL (0.0-0.1); BASO % 0.8 % (0.0-1.0); EOS # 0.3 10*3/uL (0.0-0.4); EOS % 4.2 % (1.0-4.0); HEMATOCRIT 38.7 % (37.0-47.0); LYMPH # 1.1 10*3/uL (1.3-4.4); LYMPH % 18.4 % (27.0-41.0); MEAN CELL VOLUME 99.7 fl (81.0-99.0); MEAN CORPUSCULAR HGB 32.7 pg (27.0-31.0); MEAN CORPUSCULAR HGB CONC 32.8 g/dl (33.0-37.0); MEAN PLATELET VOLUME 10.4 fl (9.6-12.3); MONO # 0.4 10*3/uL (0.1-1.0); MONO % 6.3 % (3.0-9.0); NEUT # 4.1 10*3/uL (2.3-7.9); PLATELET COUNT AUTOMATED 193 10*3/uL (130-400); RED BLOOD COUNT 3.88 10*6/uL (4.10-5.10); RED CELL DISTRI WIDTH 11.7 % (0-14.5); WHITE BLOOD COUNT 5.9 10*3/uL (4.8-10.8)
[2022-03-15 11:01] LABS: CREATININE 1.21 mg/dL (0.55-1.02); POTASSIUM 4.2 mmol/L (3.5-5.1)
[2022-03-15 11:05] LABS: FREE T4 0.93 ng/dl (0.76-1.46); THYROID STIM HORMONE (HS) 0.917 uIU/ml (0.358-4.75); TOTAL PROTEIN 6.7 gm/dL (6.4-8.2)
[2022-03-15 12:14] LABS: VITAMIN D, 25-HYDROXY 32.2 ng/mL (30-100)
== END | disposition home or self-care (01) ==
LOC: LAB 10:01
PROVIDERS: ATTEND Internal Medicine
DX: E11.9 Type 2 diabetes mellitus without complications (principal); I10 Essential (primary) hypertension; Z13.89 Encounter for screening for other disorder; E55.9 Vitamin D deficiency, unspecified; Z23 Encounter for immunization; Z13.0 Encounter for screening for diseases of the blood and blood-forming organs and certain disorders involving the immune mechanism; Z13.1 Encounter for screening for diabetes mellitus; Z13.21 Encounter for screening for nutritional disorder; Z13.220 Encounter for screening for lipoid disorders; Z13.228 Encounter for screening for other metabolic disorders; Z13.29 Encounter for screening for other suspected endocrine disorder; Z13.9 Encounter for screening, unspecified